=== PATIENT | female | born 1990 | race Hispanic/Latino ===

== ENCOUNTER 2018-03-31 08:47 | Day surgery (SDC) | payer OTHER ==
[~2018-03-31 08:47] MED LIST: LIDOCAINE 1% MDV 20ML VIAL SQ; LIDOCAINE 2% INJ 100 MG/5 ML SDV (FOR ANES.) As Ordered; MIDAZOLAM INJ 2 MG/2 ML VIAL (J2250) As Ordered; ONDANSETRON 4MG/2ML VIAL (J2405) As Ordered; PROPOFOL 200 MG/20 ML VIAL As Ordered; ROCURONIUM BROMIDE 50 MG/5 ML VIAL As Ordered; dexameTHASONE 4 MG/ML 1ML VIAL (J1100) As Ordered; fentaNYL 100 MCG/2 ML INJECTION (J3010) As Ordered
[2018-03-31 09:14] LABS: HEMATOCRIT 39.3 % (36.0-47.0); HEMOGLOBIN 12.8 g/dl (12.0-15.5); MEAN CORPUSCULAR HEMOGLOBIN 27.9 pg (27.0-33.0); MEAN CORPUSCULAR HGB CONC 32.6 g/dl (32.0-36.5); MEAN CORPUSCULAR VOLUME 85.6 fl (80.0-96.0); PLATELET COUNT, AUTOMATED 396 10^3/uL (150-450); RED BLOOD COUNT 4.59 10^6/uL (4.00-5.40); WHITE BLOOD COUNT 7.4 10^3/uL (4.0-10.0)
[2018-03-31 09:23] LABS: CONTROL LINE HCG INT CTR LINE PRESENT; HCG, SERUM QUALITATIVE NEGATIVE (NEGATIVE)
[2018-03-31] MEDS: LR 1,000 ML IV (09:50)
[2018-03-31] MEDS: SCOPOLAMINE 1MG TRANSDERMAL PATCH TOP (09:50)
[2018-03-31] MEDS ORDERED: ONDANSETRON 4MG/2ML VIAL (J2405) As Ordered (11:25)
[2018-03-31] MEDS ORDERED: fentaNYL 100 MCG/2 ML INJECTION (J3010) As Ordered (12:57)
[2018-03-31] MEDS ORDERED: KETOROLAC 60 MG/2 ML VIAL (J1885) As Ordered ×2 (13:03→14:14)
[2018-03-31] MEDS ORDERED: GLYCOPYRROLATE INJ 0.2 MG/ML 2 ML VIAL As Ordered (13:04)
[2018-03-31] MEDS ORDERED: NEOSTIGMINE 10 MG/10 ML VIAL (J2710) As Ordered (13:04)
[2018-03-31] MEDS: BUPIVACAINE HCL 0.5% 30 ML VIAL As Ordered (13:18)
[2018-03-31] MEDS ORDERED: PERCOCET 5MG/325MG TAB As Ordered (13:47)
[2018-03-31] MEDS: PERCOCET 5MG/325MG TAB PO (13:48)
[2018-03-31] MEDS ORDERED: LR 1,000 ML IV (14:00)
[2018-03-31] MEDS ORDERED: PERCOCET 5MG/325MG TAB PO (14:00)
[2018-03-31] MEDS ORDERED: fentaNYL 100 MCG/2 ML INJECTION (J3010) IV (14:00)
[2018-03-31] MEDS ORDERED: ONDANSETRON 4MG/2ML VIAL (J2405) IV (14:00)
[2018-03-31] MEDS ORDERED: IBUPROFEN 800 MG TAB PO (14:00)
== END 2018-03-31 15:03 | disposition home or self-care (01) ==
LOC: M SDC 08:47
DX: Z30.2 Encounter for sterilization (principal)
CPT/HCPCS: 58661